=== PATIENT | male | born 1960 | race Caucasian/White ===

== ENCOUNTER 2023-08-10 06:33 | Day surgery (SDC) | payer OTHER, SELFPAY ==
[2023-08-10] VITALS (11 sets, daily range): BP systolic 110–153; BP diastolic 59–79; BMI 41.6
[2023-08-10] MEDS: LOW STRENGTH ASPIRIN 81 MG PO (07:45)
[2023-08-10] MEDS: NSS 440 ML IV (07:46)
--- NOTE | 2023-08-10 09:43 | ITS.CL.CATH ---
[facility] - Catheterization
Cardiac Catheterization
Procedure Report:
LEFT HEART CATHETERIZATION
Date of Procedure: August 10, 2023
Referring: Dr. Hernan Shields
PROCEDURES:
1. Left heart catheterization with coronary and single-plane left ventriculography
INDICATION: Chest discomfort with abnormal stress test
ACCESS: Right radial artery, 6 Japanese sheath
HEMODYNAMICS : (mmHg)
AO (s/d) : 123/67
LV (s/d) : 130/14
LVEDP : 31
CORONARY FINDINGS
DOMINANCE: Right
LEFT MAIN: Normal
LEFT ANTERIOR DESCENDING: The LAD is a medium caliber vessel that arises normally from the left main and runs in the anterior interventricular groove. The LAD tapers to a small caliber vessel distally and approaches but does not wraparound the
apex. Several small diagonal branches arise from the LAD. There is no focal obstructive stenosis.
CIRCUMFLEX: The circumflex is large with a 20-30% mid stenosis. The circumflex gives rise to a single large trifurcating obtuse marginal branch and terminates in a small terminal obtuse marginal branch. No obstructive stenosis is noted.
RIGHT CORONARY ARTERY: The right coronary artery is a very large caliber dominant vessel that is widely patent supplying a large PDA and posterolateral branch.
VENTRICULOGRAPHY: Left ventriculography is performed in an HAMMER projection. The digital single-plane left ventricular ejection fraction is estimated at 50%.
RADIATION SUMMARY: Fluoro Time (min): 3.0, Dose (mGy): 552, DAP (Gy.cm2) : 41.3
Closure Device: TR band
CONCLUSIONS
1. Nonobstructive coronary disease
2. Low normal LVEF estimated at 50% with elevated LVEDP
RECOMMENDATIONS
1. Begin furosemide 20 mg daily. Renal profile 1 to 2 weeks after initiation of the Lasix.
2. Echocardiogram has been arranged in mid August with subsequent follow-up with Dr. Shields.
Copy to: Dr. Hernan Shields
--- NOTE | 2023-08-10 10:36 | W.PN.UPDATE ---
Update Note
Progress Note Update
62 y/o M s/p cardiac catheterization. He feels well following his procedure: no CP or SOB. Tolerating diet. Radial cath site C/D/I.
He has an elevated LVEDP, so will start Lasix 20mg daily and discontinue taking HCTZ. BMP check in 1 week.
F/U with Dr. Shields.
Ok for discharge after noon if he remains stable.
[2023-08-10 10:42] LABS: ACT-LR - POC 227 Seconds (116-155)
[2023-08-10 10:51] LABS: ACT-LR - POC 236 Seconds (116-155)
== END 2023-08-10 12:15 | disposition home or self-care (01) ==
LOC: CATH 06:33
PROVIDERS: ATTENDING PHYSICIAN Internal Medicine Interventional Cardiology; FAMILY PHYSICIAN Internal Medicine; OTHER PHYSICIAN Internal Medicine Cardiovascular Disease
DX: I25.10 Atherosclerotic heart disease of native coronary artery without angina pectoris (principal); R94.39 Abnormal result of other cardiovascular function study; R07.89 Other chest pain
CPT/HCPCS: 93458; C1894; Q9967

== ENCOUNTER → 2023-08-20 09:00 | Outpatient (REF) | payer OTHER, SELFPAY ==
[2023-08-20 10:51] LABS: Blood Urea Nitrogen 23 mg/dl (9-20); Calcium 9.6 mg/dl (8.4-10.2); Carbon Dioxide 27 mmol/L (22-30); Chloride 102 mmol/L (98-107); Glucose 91 mg/dl (70-99); Potassium 4.1 mmol/L (3.5-5.1); Sodium 140 mmol/L (135-145); eGFR > 60.00
== END ==
LOC: RAD 09:00
PROVIDERS: ATTENDING PHYSICIAN Internal Medicine; OTHER PHYSICIAN Internal Medicine Cardiovascular Disease; REFERRING PHYSICIAN Internal Medicine Interventional Cardiology
DX: Z00.00 Encounter for general adult medical examination without abnormal findings (principal); N43.3 Hydrocele, unspecified; I50.9 Heart failure, unspecified; I10 Essential (primary) hypertension
CPT/HCPCS: 36415; 76870; 80048; 93976

== ENCOUNTER → 2023-09-14 08:29 | Outpatient (REF) | payer OTHER, SELFPAY | LOC: DHCBS MAIN 08:29 | PROVIDERS: ATTENDING PHYSICIAN Internal Medicine Cardiovascular Disease; FAMILY PHYSICIAN Internal Medicine | DX: R06.02 Shortness of breath (principal) | CPT/HCPCS: 93306 ==

== ENCOUNTER 2023-10-09 06:07 | Day surgery (SDC) | payer OTHER, SELFPAY ==
[2023-09-28 12:21] VITALS: BMI 44.0
[2023-10-09] VITALS (9 sets, daily range): BP systolic 111–138; BP diastolic 53–74
[2023-10-09] MEDS: NORMOSOL-R 1000 IV (07:20)
== END 2023-10-09 10:25 | disposition home or self-care (01) ==
LOC: SDS 06:07
PROVIDERS: ATTENDING PHYSICIAN Urology; FAMILY PHYSICIAN Internal Medicine
DX: N43.3 Hydrocele, unspecified (principal)
CPT/HCPCS: 55040; 36415; 85610; 85730

== ENCOUNTER → 2024-01-03 09:16 | Outpatient (REF) | payer OTHER, SELFPAY ==
[2024-01-03 11:13] LABS: % Basophils 0.6 % (0-2); % Eosinophils 3.3 % (0-6); % Immature Granulocytes 0.2 % (0-0.5); % Lymphocytes 21.6 % (20.5-51.1); % Neutrophils 67.3 % (42.2-75.2); Absolute Eosinophils 0.2 10^3/uL (0-0.7); Absolute Lymphocytes 1.4 10^3/uL (1.2-3.4); Absolute Monocytes 0.5 10^3/uL (0.1-0.6); Absolute Neutrophils 4.4 10^3/uL (1.4-6.5); Hematocrit 42.9 % (39.0-52.0); Hemoglobin 15.3 g/dL (13.0-18.0); Mean Corp Hgb Conc. 35.7 g/dL (33.0-37.0); Mean Corpuscular Hgb 31.2 pg (27.0-31.0); Mean Corpuscular Volume 87.6 fL (80.0-94.0); Mean Platelet Volume 9.4 fL (7.4-10.4); Nucleated Red Blood Cells % 0 % (-); Platelet Count 220 10^3/uL (130-400); White Blood Cell Count 6.6 10^3/uL (4.8-10.8)
[2024-01-03 11:25] LABS: ALT (SGPT) 35 U/L (0-50); AST (SGOT) 31 U/L (17-59); Albumin 4.4 g/dl (3.5-5.0); Alkaline Phosphatase 92 U/L (38-126); Blood Urea Nitrogen 22 mg/dl (9-20); Calcium 9.8 mg/dl (8.4-10.2); Carbon Dioxide 28 mmol/L (22-30); Chloride 104 mmol/L (98-107); Glucose 82 mg/dl (70-99); HDL Cholesterol 46 mg/dl; LDL Cholesterol, Calculated 66 mg/dl; Potassium 4.5 mmol/L (3.5-5.1); Sodium 138 mmol/L (135-145); Total Bilirubin 0.8 mg/dl (0.2-1.3); Total Cholesterol 136 mg/dl (50-199); Total Protein 6.7 g/dl (6.3-8.2); Triglyceride 122 mg/dl (10-149); Very Low Density Lipoprotein 24 mg/dl (0-30); eGFR > 60.00
[2024-01-03 12:05] LABS: PSA, Total - Diagnostic 1.69 ng/ml (0.0-4.0); TSH Reflex To Free T4 1.14 uIU/ml (0.47-4.68)
[2024-01-03 12:23] LABS: Glycohemoglobin (HgbA1c) 4.9 % (4.0-5.6)
== END ==
LOC: REG 09:16
PROVIDERS: ATTENDING PHYSICIAN Internal Medicine; FAMILY PHYSICIAN Internal Medicine; OTHER PHYSICIAN Internal Medicine Cardiovascular Disease; REFERRING PHYSICIAN Internal Medicine Critical Care Medicine
DX: Z12.5 Encounter for screening for malignant neoplasm of prostate (principal); E78.2 Mixed hyperlipidemia; I10 Essential (primary) hypertension; G47.33 Obstructive sleep apnea (adult) (pediatric); I25.10 Atherosclerotic heart disease of native coronary artery without angina pectoris
CPT/HCPCS: 36415; 80053; 80061; 83036; 83735; 84153; 84443; 85025

== ENCOUNTER → 2024-01-18 06:15 | Day surgery (SDC) | payer OTHER, SELFPAY | LOC: GI 06:15 | PROVIDERS: ATTENDING PHYSICIAN Specialist; FAMILY PHYSICIAN Internal Medicine | DX: Z12.11 Encounter for screening for malignant neoplasm of colon (principal); K57.30 Diverticulosis of large intestine without perforation or abscess without bleeding; D17.5 Benign lipomatous neoplasm of intra-abdominal organs | CPT/HCPCS: 45380; 88305 ==

== ENCOUNTER → 2024-06-17 08:05 | Outpatient (REF) | payer BC, SELFPAY ==
[2024-06-17 09:22] LABS: % Basophils 0.6 % (0-2); % Immature Granulocytes 0.3 % (0-0.5); % Lymphocytes 20.8 % (20.5-51.1); % Neutrophils 67.3 % (42.2-75.2); Absolute Eosinophils 0.3 10^3/uL (0-0.7); Absolute Lymphocytes 1.3 10^3/uL (1.2-3.4); Absolute Monocytes 0.4 10^3/uL (0.1-0.6); Absolute Neutrophils 4.3 10^3/uL (1.4-6.5); Hematocrit 43.7 % (39.0-52.0); Mean Corp Hgb Conc. 34.3 g/dL (33.0-37.0); Mean Corpuscular Hgb 30.6 pg (27.0-31.0); Mean Corpuscular Volume 89.2 fL (80.0-94.0); Mean Platelet Volume 8.4 fL (7.4-10.4); Nucleated Red Blood Cells % 0 % (-); Platelet Count 213 10^3/uL (130-400); Red Cell Dist. Width 13.5 % (11.5-14.5); White Blood Cell Count 6.3 10^3/uL (4.8-10.8)
[2024-06-17 09:48] LABS: ALT (SGPT) 48 U/L (0-50); AST (SGOT) 37 U/L (17-59); Albumin 4.1 g/dl (3.5-5.0); Alkaline Phosphatase 90 U/L (38-126); Blood Urea Nitrogen 24 mg/dl (9-20); Calcium 9.1 mg/dl (8.4-10.2); Carbon Dioxide 32 mmol/L (22-30); Chloride 102 mmol/L (98-107); Glucose 83 mg/dl (70-99); HDL Cholesterol 51 mg/dl; LDL Cholesterol, Calculated 70 mg/dl; Magnesium 2.1 mg/dl (1.6-2.3); Potassium 4.6 mmol/L (3.5-5.1); Sodium 139 mmol/L (135-145); Total Bilirubin 0.7 mg/dl (0.2-1.3); Total Cholesterol 140 mg/dl (50-199); Total Protein 6.5 g/dl (6.3-8.2); Triglyceride 98 mg/dl (10-149); Uric Acid 5.6 mg/dl (3.5-8.5); Very Low Density Lipoprotein 19 mg/dl (0-30); eGFR > 60.00
[2024-06-17 10:30] LABS: TSH Reflex To Free T4 0.92 uIU/ml (0.47-4.68)
[2024-06-17 11:32] LABS: Glycohemoglobin (HgbA1c) 4.8 % (4.0-5.6)
== END ==
LOC: REG 08:05
PROVIDERS: ATTENDING PHYSICIAN Internal Medicine; FAMILY PHYSICIAN Internal Medicine; OTHER PHYSICIAN Internal Medicine Cardiovascular Disease; OTHER PHYSICIAN Urology; REFERRING PHYSICIAN Internal Medicine Critical Care Medicine
DX: E66.01 Morbid (severe) obesity due to excess calories (principal); E78.2 Mixed hyperlipidemia; I10 Essential (primary) hypertension; G47.33 Obstructive sleep apnea (adult) (pediatric); E88.810 Metabolic syndrome; I25.10 Atherosclerotic heart disease of native coronary artery without angina pectoris; Z13.1 Encounter for screening for diabetes mellitus
CPT/HCPCS: 36415; 80053; 80061; 83036; 83735; 84443; 84550; 85025

== ENCOUNTER → 2024-10-06 07:21 | Outpatient (REF) | payer OTHER, SELFPAY | LOC: RCS 07:21 | PROVIDERS: ATTENDING PHYSICIAN Internal Medicine Cardiovascular Disease; FAMILY PHYSICIAN Internal Medicine; REFERRING PHYSICIAN Internal Medicine Critical Care Medicine | DX: R01.1 Cardiac murmur, unspecified (principal) | CPT/HCPCS: 93306 ==